=== PATIENT | female | born 2000 | race Two or more races ===

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

== ENCOUNTER 2024-04-22 03:35 | Emergency (ER) | payer MEDICAID ==
[2024-04-22] MEDS ORDERED: ZOFR4T PO ×2 (08:06)
== END 2024-04-22 03:36 | disposition left against medical advice (07) ==
LOC: ER 03:35
DX: R10.9 Unspecified abdominal pain (principal); Z53.21 Procedure and treatment not carried out due to patient leaving prior to being seen by health care provider

== ENCOUNTER 2024-04-22 03:51 | Observation (INO) | payer MEDICAID ==
[~2024-04-22] VITALS: Ht 162.6 cm; Wt 97.5 kg
[2024-04-22] MEDS ORDERED: TERBUTALINE SULFATE 1 MG/ML 1ML VIAL SC SCH (05:00)
[2024-04-22] MEDS ORDERED: LACTATED RINGER'S 1,000 ML IV SCH (05:00)
[2024-04-22] MEDS: LACTATED RINGER'S 1,000 ML IV ONE (05:06)
[2024-04-22] MEDS: ONDANSETRON HCL 4 MG/2 ML VIAL IV PRN (05:06)
[2024-04-22 06:11] LABS: Basophils # (auto) 0 10 ^3/uL (0-0.2); Basophils % (auto) 0.2 % (0.0-2.0); Eosinophils # (auto) 0 10 ^3/uL (0-0.8); Eosinophils % (auto) 0.1 % (0.0-7.0); Hematocrit 35.4 % (36.0-46.0); Lymphocytes # (auto) 0.5 10 ^3/uL (0.4-5.4); Lymphocytes % (auto) 5.4 % (10.0-50.0); Mean Corpuscular Hemoglobin 29.2 pg (28.0-32.0); Mean Corpuscular Volume 85.8 fL (80.0-100.0); Monocytes # (auto) 0.4 10 ^3/uL (0-1.3); Monocytes % (auto) 4.5 % (0.0-12.0); Neutrophils % (auto) 89.8 % (37.0-80.0); Platelet Count (auto) 181 10^3/uL (140-450); Red Blood Cells 4.13 10^6/uL (4.0-5.20)
[2024-04-22 06:44] LABS: Alanine Aminotransferase 16 U/L (7-40); Alkaline Phosphatase 71 U/L (46-116); Amylase 84 U/L (30-118); Anion Gap 10 (5-15); Blood Urea Nitrogen 6 mg/dL (9-23); Calcium 8.9 mg/dL (8.7-10.4); Carbon Dioxide 23 mmol/L (20-31); Chloride 105 mmol/L (98-107); Glucose 105 mg/dL (74-106); Lipase 38 U/L (12-53); Potassium 3.7 mmol/L (3.5-5.1); Sodium 138 mmol/L (136-145)
[2024-04-22 06:45] LABS: Albumin 3.5 g/dL (3.2-4.8); Aspartate Aminotransferase 11 U/L (13-40); Bilirubin, Total 0.5 mg/dL (0.2-1.0); Total Protein 5.7 g/dL (5.7-8.2)
[2024-04-22 06:47] LABS: Urine Bacteria MOD /hpf (None Seen); Urine Blood Negative /uL (Negative); Urine Clarity Turbid (Clear); Urine Color Yellow (Yellow); Urine Mucus FEW (None Seen); Urine Protein, UAD 1+ (Negative); Urine Specific Gravity 1.027 (1.001-1.035); Urine Urobilinogen Normal (Negative); Urine WBC 2 /hpf (0 - 5); Urine pH 6.5 (5.0-9.0)
[2024-04-22 06:53] LABS: Amphetamine Screen, Urine Neg (NEGATIVE)
[2024-04-22 06:56] LABS: Barbiturate Scree,Urine Neg (NEGATIVE); Benzodiazephine Screen, Urine Neg (NEGATIVE); Cannabinoid Screen, Urine Neg (NEGATIVE); Cocaine Screen, Urine Neg (NEGATIVE); Opiate Scree,Urine Neg (NEGATIVE); Phencyclidine Screen, Urine Neg (NEGATIVE)
[2024-04-22] MEDS ORDERED: ZOFR4T PO ×2 (08:06)
--- NOTE | 2024-04-22 08:08 | DVHDS2 ---
Physician Discharge Progress N Final Diagnosis: 3rd trim Acute dehydration Acute gastroenteritis, N/V and Diarrhea Operations or Procedures: Operations or Procedures NST IV hydration IV Zofran Commentary: Commentary Labs all WNL NO abdominal pain Exam benign contractions resolved, not in labor Condition on Discharge: Stable Disposition: Home Discharge Instructions: Diet: Regular Activity: No Restrictions, As Tolerated Follow Up/Referral: Please follow up with OB on Wednesday, return to nearest ER for any related complications. Medications: Rx Zofran 4mg PO PRN Nausea #12 Follow Up Care: Discharge Statement: "Patient was advised to return to the ER or call 911 if any headaches, dizziness, shortness of breath, chest pain, abdominal pain, bleeding, fevers, or worsening of medical condition. Patient was counseled about treatment plan, medications, possible side effects, patientverbalized understanding. All questions were answered to the best of my ability. This discharge took greater then 30 minutes in planning, reviewing documentation, counseling the patient, and discussing with other team members." BRUCE PHILLIPS DO Apr 22, 2024 08:08
== END 2024-04-22 08:17 | disposition home or self-care (01) ==
LOC: LDRP 03:51
PROVIDERS: ADMIT Obstetrics & Gynecology; ATTEND Obstetrics & Gynecology
DX: O99.283 Endocrine, nutritional and metabolic diseases complicating pregnancy, third trimester (principal); E86.0 Dehydration; O26.893 Other specified pregnancy related conditions, third trimester; K52.9 Noninfective gastroenteritis and colitis, unspecified; O21.8 Other vomiting complicating pregnancy; Z3A.30 30 weeks gestation of pregnancy; Z79.899 Other long term (current) drug therapy
CPT/HCPCS: 36415; 59025; 80053; 80307; 81001; 81002; 82150; 83690; 85025; 94760; 96361; 96374; G0378; J2405; 96360